=== PATIENT | male | born 1940 | race Caucasian/White ===

== ENCOUNTER 2017-06-21 18:06 | Observation (INO) | payer MEDICARE, OTHER ==
[2017-06-21] MEDS ORDERED: SODIUM CHLORIDE 0.9% 1,000 ML IV ONE (19:22)
--- NOTE | 2017-06-21 19:44 | ED Physician Documentation ---
PD HPI ABD PAIN - Stated complaint Stated Complaint: POSS BLOCKAGE - Chief complaint Chief Complaint: Abd Pain - History obtained from History obtained from: Patient, Family - History of Present Illness Timing - onset: How many hours ago (8) Timing - duration: Hours (8) Timing - details: Abrupt onset Pain level max: 8 Pain level now: 0 Quality: Cramping, Pain Location: All over / everywhere Radiation: Other (epigastric) Improved by: Vomiting Worsened by: Eating Associated symptoms: Vomiting (once). No: Fever, Diarrhea, Constipation, Melena , Hematochezia, Dysuria, Hematuria, Chest pain, Dizzy Similar symptoms before: Has not had sx before Recently seen: Clinic (possible SBO on KUB) Review of Systems Constitutional: denies: Fever, Chills Ears: denies: Ear pain Nose: denies: Rhinorrhea / runny nose, Congestion Throat: denies: Sore throat Cardiac: denies: Chest pain / pressure Respiratory: denies: Cough Skin: denies: Rash Musculoskeletal: denies: Neck pain, Back pain Neurologic: denies: Headache PD PAST MEDICAL HISTORY - Past Medical History Past Medical History: Yes : Benign prostate hypertrophy - Past Surgical History Past Surgical History: Yes Derm: Skin cancer surgery - Present Medications Home Medications: Ambulatory Orders Medication Instructions Recorded Confirmed No Known Home Medications [No 06/21/17 06/21/17 Known Home Medications] - Allergies Allergies/Adverse Reactions: Allergies Allergy/AdvReac Type Severity Reaction Status Date / Time Penicillins Allergy Anaphylaxis Verified 06/21/17 18:25 - Living Situation Living Situation: reports: With family Living Arrangement: reports: At home - Social History Does the pt smoke?: No Does the pt drink ETOH?: Yes ETOH Use: Wine Does the pt have substance abuse?: No - Family History Family history: reports: Non contributory PD ED PE NORMAL - Vitals Vital signs reviewed: Yes - General General: Alert and oriented X 3, No acute distress, Well developed/nourished - HEENT HEENT: Moist mucous membranes - Neck Neck: Supple, no meningeal sign - Cardiac Cardiac: RRR, Strong equal pulses - Respiratory Respiratory: No respiratory distress, Clear bilaterally - Abdomen Abdomen: Normal bowel sounds, Soft, Non tender, Non distended - Derm Derm: Warm and dry - Neuro Neuro: Alert and oriented X 3 - Psych Psych: Normal mood, Normal affect Results - Vitals Vitals: Vital Signs - 24 hr 06/21/17 06/21/17 06/21/17 18:18 20:46 21:51 Temperature 36.6 C 36.0 C L 36.7 C Heart Rate 71 66 65 Respiratory 18 15 16 Rate Blood Pressure 120/77 132/72 H 117/81 H O2 Saturation 97 100 96 06/21/17 06/22/17 23:16 01:20 Temperature 36.4 C L 36.2 C L Heart Rate 63 65 Respiratory 15 15 Rate Blood Pressure 124/75 120/74 O2 Saturation 95 96 Oxygen O2 Source Room air - Labs Labs: Laboratory Tests 06/21/17 06/21/17 19:47 19:47 WBC 12.1 H RBC 5.28 Hgb 16.8 Hct 50.1 MCV 94.9 H MCH 31.9 H MCHC 33.6 RDW 13.3 Plt Count 208 MPV 8.5 Neut # 10.7 H Lymph # 0.9 L [place] # 0.5 Eos # 0.0 Baso # 0.0 Absolute Nucleated RBC 0.01 Nucleated RBCs 0.1 Sodium 139 Potassium 4.3 Chloride 103 Carbon Dioxide 26 Anion Gap 10.0 BUN 20 Creatinine 1.1 Estimated GFR (MDRD) 65 L Glucose 112 H Calcium 9.8 Total Bilirubin 1.7 H AST 18 ALT 17 Alkaline Phosphatase 44 Total Protein 7.0 Albumin 4.0 Globulin 3.0 Albumin/Globulin Ratio 1.3 Lipase 25 - Rads (name of study) Ct abd/pelvis Radiology: Prelim report reviewed, EMP read contemporaneously, See rad report ( Mid to distal small bowel obstruction with an enhancing lesion at the transition site suspicious for neoplasm. 2. Omental caking, a finding usually representing metastatic disease. 3. Large bladder base mass. Cystoscopic correlation is recommended. ) PD MEDICAL DECISION MAKING - ED course Complexity details: reviewed results, re-evaluated patient, considered differential, d/w patient, d/w family, d/w technology sales consultant ED course: Patient is a 77-year-old gentleman who presents to the emergency department with a small bowel obstruction. Appears to have omental caking and a suspicion of neoplasm in the mid to distal small bowel as well as a mass in the bladder. He is not vomiting and has no pain. NG tube held at this time. Kept n.p.o. and on IV fluids. Discussed the case with Dr. Brush, surgery, who recommends placing the patient in observation. Also discussed with Dr. Wynn, hospitalist This document was made in part using voice recognition software. While efforts are made to proofread this document, sound alike and grammatical errors may occur. Departure - Departure Disposition: ED Place in Observation Clinical Impression: Small bowel obstruction Condition: Stable
[2017-06-21 20:03] LABS: BASOPHILS % (AUTO) 0.4 %; EOSINOPHILS % (AUTO) 0.1 %; HCT - HEMATOCRIT 50.1 % (42.0-52.0); HGB - HEMOGLOBIN 16.8 g/dL (14.0-18.0); LYMPHOCYTES # (AUTO) 0.9 10^3/uL (1.5-3.5); LYMPHOCYTES % (AUTO) 7.1 %; MEAN CORPUSCULAR HEMOGLOBIN 31.9 pg (27.0-31.0); MEAN CORPUSCULAR HGB CONC 33.6 g/dL (32.0-36.0); MEAN CORPUSCULAR VOLUME 94.9 fL (80.0-94.0); MEAN PLATELET VOLUME 8.5 fL (7.4-11.4); MONOCYTES # (AUTO) 0.5 10^3/uL (0.0-1.0); MONOCYTES % (AUTO) 3.9 %; NEUTROPHILS # (AUTO) 10.7 10^3/uL (1.5-6.6); NEUTROPHILS % (AUTO) 88.5 %; NUCLEATED RED BLOOD CELLS AUTO 0.1 /100WBC; RED BLOOD COUNT 5.28 10^6/uL (4.70-6.10); RED CELL DISTRIBUTION WIDTH 13.3 % (12.0-15.0); UNCORRECTED WHITE BLOOD COUNT 12.1 x10^3/uL; WHITE BLOOD COUNT 12.1 x10^3/uL (4.8-10.8)
[2017-06-21 20:11] LABS: ALBUMIN/GLOBULIN RATIO 1.3 (1.0-2.2); BILIRUBIN,TOTAL 1.7 mg/dL (0.2-1.0); CALCIUM 9.8 mg/dL (8.5-10.3); CREATININE 1.1 mg/dL (0.6-1.2); POTASSIUM 4.3 mmol/L (3.5-5.0)
[2017-06-21] MEDS ORDERED: IOPAMIDOL-300 100 ML VIAL IVP ONE (20:37)
--- NOTE | 2017-06-21 21:28 | CT Preliminary Report ---
Exam: CT Abdomen/Pelvis W/ IMPRESSION: 1. Mid to distal small bowel obstruction with an enhancing lesion at the transition site suspicious f or neoplasm. 2. Omental caking, a finding usually representing metastatic disease. 3. Large bladder base mass. Cystoscopic correlation is recommended. [facility] SITE ID: [id number]
--- NOTE | 2017-06-21 21:31 | CT Report ---
EXAM: CT ABDOMEN AND PELVIS EXAM DATE: 06/21/2017 08:40 PM. CLINICAL HISTORY: Vomiting, abd pain, poss SBO on x-ray. COMPARISONS: 10/03/2011. TECHNIQUE: Routine helical CT imaging was performed through the abdomen and pelvis. IV contrast: 100 cc Isovue-300. Enteric contrast: No. Reconstructions: Coronal and sagittal. In accordance with CT protocol optimization, one or more of the following dose reduction techniques w ere utilized for this exam: automated exposure control, adjustment of mA and/or KV based on patient s ize, or use of iterative reconstructive technique. FINDINGS: Lung Bases: Mild scarring or atelectasis. No acute infiltrate or effusion. Liver: Normal. No masses. Gallbladder/Bile Ducts: Unremarkable. Spleen: Normal. Pancreas: Normal. Adrenal Glands: Normal. Kidneys: Normal. No masses or hydronephrosis. Peritoneal Cavity/Bowel: Dilation of mid and proximal small bowel loops to as much as 3.8 cm, mostly fluid-filled. Transition zone in the left upper quadrant with decompressed ileum and colon. A localiz ed enhancing narrowed segment is best seen on coronal images 17 through 20, measuring about 2.4 cm in length. Additionally, there is omental caking with ill-defined nodular densities best seen on axial images 38 through 50. A small metallic foreign body is present in the same location, most likely surgical clip. No free fluid, free air, or lymphadenopathy. Unremarkable region of appendix. Pelvic Organs: 4.5 lobulated mass in the bladder base contiguous with prostate, measuring about 4 x 5 cm with rare calcifications. Vasculature: No aneurysms or other significant abnormality. Bones: No significant abnormality. Other: None. IMPRESSION: 1. Mid to distal small bowel obstruction with an enhancing lesion at the transition site suspicious f or neoplasm. 2. Omental caking, a finding usually representing metastatic disease. 3. Large bladder base mass. Cystoscopic correlation is recommended. [facility] Referring Provider Line: [phone] SITE ID: [id number]
[2017-06-22] MEDS ORDERED: SODIUM CHLORIDE FLUSH 0.9% 10 ML SYRINGE IVP PRN (02:18)
[2017-06-22] MEDS ORDERED: POLYETHYLENE GLYCOL 3350 17 GM PACKET PO ONE (02:30)
[2017-06-22] MEDS ORDERED: LACTATED RINGERS 1,000 ML IV SCH (03:00)
[2017-06-22] MEDS ORDERED: SODIUM CHLORIDE FLUSH 0.9% 10 ML SYRINGE IVP SCH (06:00)
[2017-06-22] MEDS ORDERED: PANTOPRAZOLE 40 MG TABLET PO SCH (07:00)
[2017-06-22 07:59] VITALS: BP 138/74
--- NOTE | 2017-06-22 11:46 | Discharge Plan ---
Discharge Plan Disposition: 01 Home, Self Care Condition: Stable Prescriptions: Docusate Sodium 250Mg Capsule [Colace 250Mg Capsule] 250 mg PO BID #60 capsule Polyethylene Glycol 3350 [Miralax] 17 gm PO DAILY PRN 30 Days PRN Reason: Constipation Senna [Senokot] 8.6 mg PO BID 30 Days Diet: Soft Activity Restrictions: No Restrictions Shower Restrictions: No Driving Restrictions: No Weight Bearing: Full Weight Instruction Topics: Obstruction Sm Bowel Additional Instructions or Follow Up instructions: Take colace three times daily or senna two times daily. If no bowel movement in 24 hours take Miralax or Milk of Magnesia. Follow up with your PCP and make an appointment to see urology for bladder mass. No Smoking: If you smoke, Please STOP! Call for help.
--- NOTE | 2017-06-22 14:07 | HISTORY & PHYSICAL EXAMINATION ---
DATE OF ADMISSION: 06/22/2017 ADMITTING PHYSICIAN: Dr. Brush. REASON FOR ADMISSION: Bowel obstruction. HISTORY OF PRESENT ILLNESS: This is a 77-year-old male who was doing well until experiencing cramping abdominal pain yesterday morning after breakfast. He states that this progressively became worse throughout the day and he eventually went to his primary care physician for evaluation. An abdominal x- ray was performed which demonstrated loops of small bowel which were dilated with air-fluid levels concerning for a bowel obstruction. He was then called and told to go to the emergency department. While he was at his PCP's office he actually had an episode of vomiting and states that after vomiting he felt much better. Upon arrival in the emergency department he was pain-free without any nausea. A CT scan of the abdomen was performed which did demonstrate mid-to- distal small bowel obstruction with an enhancing lesion at the transition site suspicious for a neoplasm. There was omental caking probably representing metastatic disease and a large bladder mass. Upon my evaluation of the patient in the emergency department, he continued to be pain free and hemodynamically stable. He states that he last had a bowel movement this morning which was small and passed gas around that time. He only had the one episode of vomiting and this has not recurred. He also denies any recurrent nausea. Typically he states that he has regular bowel movements and denies any history of recent constipation or prior episodes of bowel obstruction. He states that he had food poisoning about 3 weeks ago and had some loose stools associated with this but once that resolved, his bowel habits had returned to normal. He has had multiple TURP procedures in the past for BPH, but has never been diagnosed with prostate cancer. He has had no intra-abdominal surgeries. PAST MEDICAL HISTORY: BPH treated in [place], skin cancer. PAST SURGICAL HISTORY: Multiple TURP procedures, Mohs procedure for facial skin cancer. HOME MEDICATIONS: None. ALLERGIES TO MEDICATIONS: PENICILLIN. SOCIAL HISTORY: The patient is present with his . He lives between [place] and [place] and recently came back over to [facility] a few weeks ago. He does have a urologist in [place] but not one established in [place]. He does not smoke and occasionally drinks wine. PHYSICAL EXAMINATION: VITAL SIGNS: Temperature 36.7, blood pressure 117/81, heart rate is 65, respiratory rate 16, O2 saturation 96% on room air. GENERAL: The patient is awake, alert, oriented x3, in no acute distress. He is of average build. CARDIOVASCULAR: Regular rate and rhythm. CHEST: Clear to auscultation bilaterally with no rhonchi or wheezing. ABDOMEN: Soft, nondistended and nontender to palpation. EXTREMITIES: Nonedematous. LAB VALUES: Sodium 139, potassium 4.3, chloride 103, bicarb 26, BUN 20, creatinine 1.1. White blood cell count is 12.1, hemoglobin 16.8, hematocrit 50.1 , platelets 208, lactate not performed. CT scan of the abdomen demonstrated dilation of the mid and proximal small bowel loops to 3.8 cm filled with fluid, transition zone is in the upper left quadrant. There is a localized enhancing narrowed segment of the small bowel measuring 2.4 cm in length. There is also omental caking present. There is a 4.5 lobulated mass in the bladder contiguous with the prostate measuring 4 x 5 cm. ASSESSMENT: This is a 77-year-old male presenting with small bowel obstruction likely in association with metastatic bladder cancer. PLAN: The patient will be admitted for observation and started on a bowel regimen. If he is able to have a bowel movement, pass gas and remain pain-free he will be started on a diet and discharged home tomorrow. He is instructed that he must follow up with the urologist after discharge from the hospital due to the finding of the bladder mass with peritoneal spread. The patient and his understand all of the above. JOB #: [id number] EXT JOB #:[id number] SUAD
--- NOTE | 2017-06-28 06:32 | DISCHARGE SUMMARY ---
DATE OF ADMISSION: 06/22/2017 DATE OF DISCHARGE: 06/22/2017 CODE STATUS: Full ADMISSION DIAGNOSES: bowel obstruction, bladder mass DISCHARGE DIAGNOSES: bowel obstruction, bladder mass HOSPITAL COURSE: This is a 77-year-old gentleman who presented to the emergency department with abdominal pain and nausea and vomiting. A CT scan was performed which demonstrated a bladder mass with omental caking and a small bowel obstruction. He had vomited prior to arrival to the hospital and actually once arrived to the emergency department was pain free. His abdominal exam was negative for any pain or distention. He was subsequently admitted for observation and placed on a bowel protocol. The patient was passing gas and having bowel movements by hospital day #1 and tolerated regular diet. He was able to be discharged home on hospital day #1 with instructions to follow up with a urologist for the bladder mass which was concerning for bladder cancer. Several numbers of urologists in the area were provided for the patient. Additionally, his CT scan images were pushed to Andrea and the report of the CT scan was provided to the patient. He was instructed to continue the bowel regimen to prevent further occurrences of bowel obstruction and to drink plenty of water and eat plenty of fiber. He was provided with list of stool softeners and laxatives to utilize. PHYSICAL EXAM ON DISCHARGE: VITAL SIGNS: Temperature 36.6, blood pressure 138/74, heart rate 59, respiratory rate 16, O2 saturation 97% on room air. He is awake, alert, oriented x3 in no acute distress. He is of average build. CARDIOVASCULAR: Regular rate and rhythm. CHEST: Clear to auscultation bilaterally with no rhonchi or wheezing. ABDOMEN: Soft, nondistended and nontender to palpation. EXTREMITIES: Nonedematous. CONDITION AT DISCHARGE: Stable ALLERGIES: NKDA JOB #: [id number] EXT JOB #:[id number] [facility]
== END 2017-06-22 12:55 | disposition home or self-care (01) ==
LOC: ED 18:06 → OBS 06-22 02:18
PROVIDERS: ADMIT Surgery; ATTEND Surgery
DX: K56.60 Unspecified intestinal obstruction (principal); N32.89 Other specified disorders of bladder; N40.0 Benign prostatic hyperplasia without lower urinary tract symptoms; Z85.828 Personal history of other malignant neoplasm of skin
CPT/HCPCS: 36415; 74177; 80053; 83690; 85025; 96360; 96361; 99284; A9270; G0378; J7120; Q9967